=== PATIENT | female | born 1955 | race Caucasian/White ===

== ENCOUNTER 2024-08-07 14:21 | Emergency (ER) | payer OTHER ==
[~2024-08-07] VITALS: Ht 175.3 cm; Wt 61.2 kg
[2024-08-07 14:35] VITALS: BP_SYST 113; PULSE 73; RESP 22; TEMP 98.3; O2SAT 98
[2024-08-07] MEDS: MECLIZINE HCL 25 MG TABLET (ANITVERT) PO ONE (15:32)
[2024-08-07 16:06] LABS: ALBUMIN 3.4 g/dL (3.4-4.8); CALCIUM 9.5 mg/dL (8.4-11.0); CREATININE 1.69 mg/dL (0.55-1.30); POTASSIUM 3.9 mmol/L (3.5-5.1); TOTAL BILIRUBIN 0.5 mg/dL (0.0-1.0); TOTAL PROTEIN, SERUM 6.9 g/dL (6.4-8.3)
[2024-08-07 16:11] LABS: BASOPHILS # (AUTO) 0.1 K/uL (0.0-0.2); BASOPHILS % (AUTO) 1.1 % (0.0-2.0); EOSINOPHILS # (AUTO) 0.1 K/uL (0.0-0.4); EOSINOPHILS % (AUTO) 2.4 % (0.0-4.0); HEMATOCRIT 35.2 % (36-48); HEMOGLOBIN 11.9 g/dL (12.0-16.0); LYMPHOCYTES # (AUTO) 1.2 K/uL (1.0-5.5); LYMPHOCYTES % (AUTO) 23.2 % (20.5-51.5); MEAN CORPUSCULAR HEMOGLOBIN 32 pg (27-31); MEAN CORPUSCULAR HGB CONC 34 % (32-36); MEAN CORPUSCULAR VOLUME 95 fL (79.0-98.0); MONOCYTES # (AUTO) 0.3 K/uL (0.0-1.0); NEUTROPHILS # (AUTO) 3.4 K/uL (1.8-7.7); NEUTROPHILS % (AUTO) 67.3 % (40.0-70.0); PLATELET COUNT (AUTO) 161 K/uL (130-430); RED BLOOD CELL COUNT(AUTO) 3.72 MIL/uL (4.2-6.2); RED CELL DISTRIBUTION WIDTH 13.5 % (9.0-15.0)
[2024-08-07] MEDS ORDERED: AMOX500C2 PO (18:39)
[2024-08-07] MEDS ORDERED: DIF100 PO (18:39)
[2024-08-07] MEDS ORDERED: FLUT16SP16 NS (18:39)
[2024-08-07] MEDS ORDERED: IBUP-1969 PO (18:39)
[2024-08-07] MEDS: FLUCONAZOLE 200 MG TABLET (DIFLUCAN) PO ONE (18:43)
[2024-08-07] MEDS: AMOXICILLIN 500 MG CAPSULE PO ONE (18:43)
[2024-08-07 18:46] VITALS: BP_SYST 108; PULSE 61; RESP 16; TEMP 97.8; O2SAT 98
== END 2024-08-07 18:46 | disposition home or self-care (01) ==
LOC: SED 14:21
DX: S06.0X0A Concussion without loss of consciousness, initial encounter (principal); H81.10 Benign paroxysmal vertigo, unspecified ear; W01.0XXA Fall on same level from slipping, tripping and stumbling without subsequent striking against object, initial encounter; Y93.89 Activity, other specified; Y92.89 Other specified places as the place of occurrence of the external cause; Y99.8 Other external cause status
CPT/HCPCS: 36415; 70450-TC; 80053; 85025; 93005; 99284; J8597